=== PATIENT | male | born 1950 | race Two or more races ===

== ENCOUNTER 2017-09-14 17:39 | Emergency (ER) | payer MEDICARE ==
[~2017-09-14] VITALS: Ht 149.9 cm; Wt 68.0 kg
[2017-09-14 17:49] VITALS: BP 126/73
[2017-09-14] MEDS ORDERED: Ketorolac 30mg Inj IM ONE (18:30)
--- NOTE | 2017-09-14 18:41 | Emergency Room Report ---
History of Present Illness General Chief Complaint: Pain Source: Patient Present Illness HPI 67 year-old male patient since the ER complaining of left pain. reports history hip surgery over 30 years ago. Denies acute fall or direct traumatic injury to hip or leg. Reports being pain. Reports limping due to pain. Denies chest pain, shortness breath, fever, other acute symptoms. reports he was stuck on an elevator earlier today when he felt it "jolted" when it started moving again and began to experience pain. denies hitting his head or loss consciousness. Denies vision changes. Denies hitting his hip against the elevator wall. Allergies: Coded Allergies: No Known Allergies (Unverified , 09/14/17) Patient History Past Medical History: see triage record Reviewed Nursing Documentation: PMH: Agreed; PSxH: Agreed Nursing Documentation-PMH Hx Diabetes: Yes Review of Systems All Other Systems: negative except mentioned in HPI Physical Exam Vital Signs Date Time Temp Pulse Resp B/P (MAP) Pulse Ox O2 Delivery O2 Flow Rate FiO2 09/14/17 17:49 98.1 82 18 126/73 96 Room Air 98.1 Sp02 EP Interpretation: reviewed, normal General Appearance: well appearing, no apparent distress, alert, GCS 15, non- toxic Head: normocephalic, atraumatic Eyes: bilateral eye normal inspection, bilateral eye PERRL ENT: hearing grossly normal, normal pharynx, no angioedema, normal voice, uvula midline, moist mucus membranes Neck: full range of motion Respiratory: lungs clear, normal breath sounds, no rhonchi, no respiratory distress, no accessory muscle use, no wheezing, speaking full sentences Musculoskeletal: back normal, digits/nails normal, gait/station normal, normal range of motion, other - no leg length discrepancy, leg not held in adduction or abduction, no deformity, no bruising, no erythema or ecchymosis, tender Neurologic: alert, oriented x3, responsive, motor strength/tone normal, sensory intact Psychiatric: mood/affect normal Skin: no rash, other - surgical scar noted over left hip and proximal lateral thigh Medical Decision Making PA Attestation Dr. Mccloud is my supervising Physician whom patient management has been discussed with. Diagnostic Impression: Primary Impression: Hip pain ER Course Pt. presents to the ED c/o left hip pain. Ddx considered but are not limited to fracture, sprain, strain, contusion, dislocation. No erythema, no warmth to touch, no fever, nontoxic appearing, low suspicion for septic joint. Vital signs: are WNL, pt. is afebrile Ordered X-ray and pain medication. ER COURSE Provided with pain medication. Length discrepancy, like not held in abduction or abduction, low suspicion for dislocation or fracture. An X-ray of the pelvis shows no acute disease per the preliminary reading. An X-ray of the left hip shows likely old fracture with metal surgical rods consistent with history of surgery per the preliminary reading. patient reports improvement in symptoms following administration of pain medication the ER. patient declined crutches. Patient instructed on RICE method: rest, ice, compression, elevation. Patient instructed on rest, ice and heat. Patient instructed to be WBAT provided with contact information for orthopedic urgent care, follow-up with them if unable to get referral from primary care provider. Followup with primary care provider. Discuss referral to ortho/pain management/ PT as needed. Discuss further imaging with MRI/CT as needed. DISCHARGE: -Rx provided for Ibuprofen for pain symptoms. At this time pt. is stable for d/c to home. Patient is resting comfortably, in no acute distress, nontoxic appearing, talking without difficulty. Will provide printed patient care instructions, and any necessary prescriptions. Patient instructed to follow with primary care provider in 3 - 5 days and to request further follow-up as needed. Care plan and follow up instructions have been discussed with the patient prior to discharge. Take medications as directed. Patient questions asked and answered. Patient reports understanding and agreement to treatment plan. ER precautions given, patient instructed to return to ER immediately for any new or worsening of symptoms. - Please note that this Emergency Department Report was dictated using [employer] sugar boiler technology software, occasionally this can lead to erroneous entry secondary to interpretation by the dictation equipment. Other X-Ray Diagnostic Results Other X-Ray Diagnostic Results #1: X-Ray ordered: pelvic # of Views/Limited Vs Complete: 1 View Indication: Pain EP Interpretation: Yes PA Xray: Interpretation reviewed, by supervising MD, and agrees with findings. Interpretation: no dislocation, no soft tissue swelling, no fractures Impression: No acute disease TANIA ScribBrenden Garcia PA-C Other X-Ray Diagnostic Results #2: X-Ray ordered: left hip # of Views/Limited Vs Complete: 2 View Indication: Pain EP Interpretation: Yes TANIA Xray: Interpretation reviewed, by supervising MD, and agrees with findings. Interpretation: no dislocation, no soft tissue swelling, other - old fracture with metal rods placed consistent with patient surgical history Impression: No acute disease TANIA Scribe Text Steve Garcia PA-C Last Vital Signs Date Time Temp Pulse Resp B/P (MAP) Pulse Ox O2 Delivery O2 Flow Rate FiO2 09/14/17 17:49 98.1 82 18 126/73 96 Room Air 98.1 Status: improved Disposition: HOME, SELF-CARE Condition: Stable Scripts Ibuprofen* (MOTRIN*) 600 Mg Tablet 600 MG ORAL Q8H PRN for For Pain, #30 TAB 0 Refills Prov: Kailash Garcia 09/14/17 Referrals: NON PHYSICIAN (PCP) Patient Instructions: Hip Pain Additional Instructions: Patient instructed to follow up with primary care provider and discuss further referral to orthopedics. Patient instructed on RICE method: rest, ice, compression, elevation. Patient instructed to WBAT. Take medications as directed. Patient questions asked and answered. ER precautions given, patient instructed to return to ER immediately for any new or worsening of symptoms. Kailash Garcia Sep 14, 2017 18:41
[2017-09-14] MEDS ORDERED: IBUPROFEN600 MG ORAL (19:32)
[2017-09-14 19:48] VITALS: BP 121/70
[2017-09-14 19:51] VITALS: BP 121/70
--- NOTE | 2017-09-15 08:22 | Diagnostic Imaging Report ---
Indication: Left hip pain Technique: 2 views of the left hip, one view of the pelvis Comparison: none Findings: Medullary joleen and compression screw are seen reducing old healed intertrochanteric fracture. No acute fractures. No dislocations. Joint spaces are preserved. The bones are osteoporotic Impression: No acute bony trauma Postsurgical and posttraumatic changes, as described Note that in elderly osteoporotic patients, nondisplaced hip fractures can easily be occult. Consider cross-sectional imaging if there is high clinical suspicion
== END 2017-09-14 19:59 | disposition home or self-care (01) ==
LOC: EMR 17:56
DX: M25.552 Pain in left hip (principal); E11.9 Type 2 diabetes mellitus without complications
CPT/HCPCS: 72170; 73502; 96372; 99284; J1885